=== PATIENT | male | born 1995 | race Hispanic/Latino ===

== ENCOUNTER 2021-07-09 10:58 | Emergency (ER) | payer SELFPAY ==
--- NOTE | 2021-07-09 13:43 | ER ---
Nurse's Notes [facility] Name: Law Abreu Age: 26 yrs Sex: Male : 1995 Arrival Date: 07/09/2021 Time: 11:01 Bed 2 Private MD: Diagnosis: Rash and other nonspecific skin eruption Presentation: 07/09 11:26 Chief complaint: Patient states: Noticed facial redness and itchiness on 07/06/21. Also vg1 states MELISSA ear pain and sore throat. Denies shortness of breath or difficulty breathing. Coronavirus screen: Vaccine status: Patient reports being unvaccinated. Client denies travel out of the [place] in the last 14 days. Ebola Screen: Patient negative for fever greater than or equal to 101.5 degrees Fahrenheit, and additional compatible Ebola Virus Disease symptoms. Initial Sepsis Screen: Does the patient meet any 2 criteria? No. Patient's initial sepsis screen is negative. Does the patient have a suspected source of infection? No. Patient's initial sepsis screen is negative. Risk Assessment: Do you want to hurt yourself or someone else? Patient reports no desire to harm self or others. Onset of symptoms was July 06, 2021. 11:26 Method Of Arrival: Ambulatory vg1 11:26 Acuity: STACIA 4 vg1 Triage Assessment: 11:28 General: Appears in no apparent distress. comfortable, Behavior is calm, cooperative. vg1 Pain: Complains of pain in right ear and left ear and throat and face. Historical: - Allergies: 11:28 No Known Allergies; vg1 - Home Meds: 11:28 None [Active]; vg1 - PMHx: 11: None; vg1 - PSHx: 11:28 None; vg1 - Immunization history:: Client reports having NOT received the Covid vaccine. - Social history:: Smoking status: Patient denies any tobacco usage or history of. Patient/guardian denies using alcohol, street drugs, The patient lives with family. - Family history:: not pertinent. Assessment: 13:49 Reassessment: Patient is alert, oriented x 3, equal unlabored respirations, skin aa5 warm/dry/pink. Vital Signs: 11:26 BP 122 / 85; Pulse 79; Resp 16; Temp 98.1; Pulse Ox 100% ; Weight 62.6 kg; Height 5 ft. vg1 5 in. (165.10 cm); Pain 5/10; 11:26 Body Mass Index 22.96 (62.60 kg, 165.10 cm) vg1 ED Course: 11:01 Patient arrived in ED. ds1 11:28 Triage completed. vg1 11:28 Arm band placed on. vg1 11:49 Strep swab sent to lab. vg1 13:17 Magdaleno Quispe MD is Attending Physician. ma2 13:49 No provider procedures requiring assistance completed. Patient did not have IV access aa5 during this emergency room visit. Administered Medications: No medications were administered Outcome: 13:43 Discharge ordered by . ma2 13:49 Discharged to home ambulatory. aa5 13:49 Condition: stable 13:49 Discharge instructions given to patient, Instructed on discharge instructions, follow up and referral plans. medication usage, Demonstrated understanding of instructions, follow-up care, medications, Prescriptions given X 2. 13:50 Patient left the ED. aa5 Signatures: Alexandrea Jacobson ds1 Shirley Ruano, RN RN aa5 Magdaleno Quispe MD MD ma2 Ileana Cavazos, RN RN vg1
--- NOTE | 2021-07-09 13:43 | EDPHYS ---
Physician Documentation [facility] Name: Law Abreu Age: 26 yrs Sex: Male : 1995 Arrival Date: 07/09/2021 Time: 11:01 Bed 2 Private MD: ED Physician Magdaleno Quispe HPI: 07/09 13:41 This 26 yrs old Male presents to ER via Ambulatory with complaints of Facial ma2 itching. 13:41 Onset: The symptoms/episode began/occurred gradually, 1 day(s) ago. Associated signs ma2 and symptoms: Pertinent positives: itching, Pertinent negatives: burning sensation, difficulty breathing, fever, nausea, Pain swelling of lips, swelling of throat, swelling of tongue. Severity of symptoms: At their worst the symptoms were very mild in the emergency department the symptoms are unchanged. The patient has not experienced similar symptoms in the past. Historical: - Allergies: 11:28 No Known Allergies; vg1 - Home Meds: 11:28 None [Active]; vg1 - PMHx: :28 None; vg1 - PSHx: 11:28 None; vg1 - Immunization history:: Client reports having NOT received the Covid vaccine. - Social history:: Smoking status: Patient denies any tobacco usage or history of. Patient/guardian denies using alcohol, street drugs, The patient lives with family. - Family history:: not pertinent. ROS: 13:41 Constitutional: Negative for fever, chills, and weight loss. ma2 13:41 All other systems are negative. Exam: 13:41 Constitutional: This is a well developed, well nourished patient who is awake, alert, ma2 and in no acute distress. Head/Face: Normocephalic, atraumatic. Eyes: Pupils equal round and reactive to light, extra-ocular motions intact. Lids and lashes normal. Conjunctiva and sclera are non-icteric and not injected. Cornea within normal limits. Periorbital areas with no swelling, redness, or edema. ENT: Nares patent. No nasal discharge, no septal abnormalities noted. Tympanic membranes are normal and external auditory canals are clear. Oropharynx with no redness, swelling, or masses, exudates, or evidence of obstruction, uvula midline. Mucous membranes moist. Neck: Trachea midline, no thyromegaly or masses palpated, and no cervical lymphadenopathy. Supple, full range of motion without nuchal rigidity, or vertebral point tenderness. No Meningismus. Chest/axilla: Normal chest wall appearance and motion. Nontender with no deformity. No lesions are appreciated. Cardiovascular: Regular rate and rhythm with a normal S1 and S2. No gallops, murmurs, or rubs. Normal PMI, no JVD. No pulse deficits. Respiratory: Lungs have equal breath sounds bilaterally, clear to auscultation and percussion. No rales, rhonchi or wheezes noted. No increased work of breathing, no retractions or nasal flaring. Abdomen/GI: Soft, non-tender, with normal bowel sounds. No distension or tympany. No guarding or rebound. No evidence of tenderness throughout. Back: No spinal tenderness. No costovertebral tenderness. Full range of motion. Skin: there is faint hives on neck and facial and neck itching, otherwise Warm, dry with normal turgor. Normal color with no rashes, no lesions, and no evidence of cellulitis. MS/ Extremity: Pulses equal, no cyanosis. Neurovascular intact. Full, normal range of motion. Neuro: Awake and alert, GCS 15, oriented to person, place, time, and situation. Cranial nerves II-XII grossly intact. Motor strength 5/5 in all extremities. Sensory grossly intact. Cerebellar exam normal. Normal gait. Vital Signs: 11:26 BP 122 / 85; Pulse 79; Resp 16; Temp 98.1; Pulse Ox 100% ; Weight 62.6 kg; Height 5 ft. vg1 5 in. (165.10 cm); Pain 5/10; 11:26 Body Mass Index 22.96 (62.60 kg, 165.10 cm) vg1 MDM: 13:17 Patient medically screened. ma2 13:41 Differential diagnosis: impetigo, varicella, allergic reaction, parasite infection. ma2 Data reviewed: vital signs, nurses notes. Counseling: I had a detailed discussion with the patient and/or guardian regarding: the historical points, exam findings, and any diagnostic results supporting the discharge/admit diagnosis, the presence of at least one elevated blood pressure reading (>120/80) during this emergency department visit, the need for outpatient follow up. Response to treatment: the patient's symptoms have markedly improved after treatment. 07/09 11:47 Order name: Strep; Complete Time: 13:43 vg1 07/09 12:30 Order name: Throat Culture EDMS Administered Medications: No medications were administered Disposition Summary: 07/09/21 13:43 Discharge Ordered Location: Home ma2 Condition: Stable ma2 Diagnosis - Rash and other nonspecific skin eruption ma2 Followup: ma2 - With: Private Physician - When: Tomorrow - Reason: Continuance of care Discharge Instructions: - Discharge Summary Sheet ma2 - Rash, Adult, [id number] ma2 Forms: - Medication Reconciliation Form ma2 - Thank You Letter ma2 - Antibiotic Education ma2 - Prescription Opioid Use ma2 Prescriptions: - Benadryl 25 mg Oral Capsule - take 1 capsule by ORAL route every 6 hours As needed; 30 tablet; Refills: 0, ma2 Product Selection Permitted - Medrol (Berto) 4 mg Oral Tablets, Dose Pack - take 1 tablet by ORAL route as directed - follow package instructions; 1 ma2 packet; Refills: 0, Product Selection Permitted Signatures: Dispatcher [employer] EDMS Magdaleno Quispe MD MD ma2 Ileana Cavazos RN RN vg1
[2021-07-09 15:08] VITALS: BP 122/85; TEMP 98.1; O2SAT 100
== END 2021-07-09 13:50 | disposition home or self-care (01) ==
LOC: ER 10:58
DX: R21 Rash and other nonspecific skin eruption (principal)
CPT/HCPCS: 87070; 87081; 99283

== ENCOUNTER 2022-02-23 12:36 | Emergency (ER) | payer SELFPAY ==
--- OUTSIDE RECORDS SUMMARY | 2022-02-23 12:39 | XMS REPORT | Continuity of Care Document ---
:1995 Author Organization [facility] t Address [address] [place] [address] Care Team Providers Name Role Phone Unavailable Unavailable Unavailable Problems This patient has no known problems. Allergies, Adverse Reactions, Alerts This patient has no known allergies or adverse reactions. Medications This patient has no known medications. Procedures This patient has no known procedures. Results Test Description Test Time Test Comments Results Result Comments Source SARS-CoV-2 (COVID-19), RT-PCR/TMA 2021-09-24 07:04:25 Test Item Value Reference Range Interpretation Comme nts SARS-CoV-2 INTERPRETATION NEGATIVE SEE NOTE S ARS-CoV-2 RNA NOT (test code = 44352) DETECTED Negative results do not preclude SARS-C oV-2 infection and should notb e used as the sole basis for patient management deci sions. Negativeresults must be combined with clinical o bservations, patient history ,and epidemiological information. Optimum specime n types and timingfor peak viral levels during infectio ns caused by SARS-CoV-2 have notbeen determined. Col lection of multiple specim ens or types ofspecimens may be necessary to detect virus. I mproper specimencollect ion and handling, sequence variab ility under primers/probes, or organism present below t he limit of detection may l ead to falsenegative r esults. Positive and negative pr edictive values oftesting are h ighly dependent on prevalence. False negative testresults are more likely when prevalence is h igh. SOURCE (test code = 07606) NASOPHARYNGEAL Note: Methodology is Courtney Divine Real-Time RT-PCR. The expected r esult or reference range is NEGATIVE (Not Detected). For more information regarding COVID -19 testing to include clinica linformation, methodology det ail, intended use, FDA author ization andrecommended fact sheets for patients or hea lthcare providers, see [facility] Announcement: S ARS-CoV-2 (COVID-19) by Bonita TORRES at URL below (note,fact shee ts are provided by method given in report:https:// www.[employer]/c bisi/pan t-communications/ Alternatively, see downloadable PDF fact sheet at:https://www. [employer]/COVID -19-RT-PCR UNLESS OTHERWISE INDIC ATED, ALL TESTING PERFORMED [facility], [facility]. [address] [place] [address] LABORATORY DIRE CTOR: AMANDA LOU M.D. CLIA NUMBER [id number] [facility] [place]. [id number]
[2022-02-23 13:51] LABS: Urine Blood Negative (Negative); Urine Glucose Negative (Negative); Urine Protein Negative (Negative)
[2022-02-23 13:51] LABS: Hematocrit 40.4 % (39.6-49.0); Lymphocytes % 15.2 % (15.3-44.8); MPV 7.1 fL (7.6-11.3); RBC Red Blood Cell Count 4.49 M/uL (4.33-5.43)
[2022-02-23 14:07] LABS: Urine Bacteria NONE SEEN /HPF (NONE SEEN); Urine Mucus 1+ /HPF (NONE SEEN); Urine RBC <5 /HPF (NONE SEEN)
[2022-02-23 14:11] LABS: Albumin 4.2 g/dL (3.4-5.0); Bilirubin Total 0.9 mg/dL (0.2-1.0); Potassium 3.9 mmol/L (3.5-5.1); Protein, Total 7.6 g/dL (6.4-8.2)
[2022-02-23] MEDS ORDERED: NA CHLORIDE 0.9% 1,000 ML ONE (15:44)
[2022-02-23] MEDS ORDERED: KETOROLAC 30 MG/ML INJ ONE (15:44)
--- NOTE | 2022-02-23 16:30 | RAD REPORT ---
EXAM DESCRIPTION: CT - Abdomen Pelvis W Contrast - 02/23/2022 4:16 pm CLINICAL HISTORY: Abdominal pain, acute, nonlocalized COMPARISON: CT ABD PELVIS W CONTRAST dated 06/09/2014 TECHNIQUE: Biphasic, helical CT imaging of the abdomen and pelvis was performed following 100 ml non -ionic IV contrast. Oral contrast was given. All CT scans are performed using dose optimization technique as appropriate and may include automated exposure control or mA/KV adjustment according to patient size. FINDINGS: No suspicious findings in the lung bases. The liver, spleen, and pancreas show no suspicious findings. Gallbladder and biliary tree are also wi thout suspicious finding. Mild right-sided hydronephrosis is present. No pyelonephritis or acute renal parenchymal process seen . Patient has a 2-3 mm right UVJ calcification as a source for the hydronephrosis. 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 In the upper pole moiety there is a nonobstructing 4 millimeter calcification. No nonobstructing calculi on the right. No left-side d calcification or hydronephrosis. No solid mass lesions seen. Urinary bladder is mostly contracted. No adrenal abnormalities. No dilated bowel loops or bowel wall thickening. Appendix is normal. No free air, free fluid or infla mmatory stranding. No hernia, mass or bulky lymphadenopathy. No suspicious bony findings. IMPRESSION: Mild right-sided hydronephrosis secondary to a 2-3 mm right UVJ calcification. 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 There is a 4 mm nonobs tructing calcification in the upper pole moiety. No pyelonephritis or acute renal parenchymal process seen. The UVJ stone does not cause significant o r measurable asymmetry in the parenchymal enhancement pattern.
[2022-02-23] MEDS ORDERED: MAGNESIUM SULFATE 1 gm IVPB 1 GM/100 ML BAG IV ONE (16:53)
[2022-02-23] MEDS ORDERED: MORPHINE 4 MG/ML SYR ONE (16:53)
[2022-02-23] MEDS ORDERED: TAMSULOSIN 0.4 MG SR CAP ONE (16:53)
--- NOTE | 2022-02-23 17:21 | EDPHYS ---
Physician Documentation [facility] Name: Law Abreu Age: 26 yrs Sex: Male : 1995 Arrival Date: 02/23/2022 Time: 12:39 Bed 23 Private MD: ED Physician Erasto Mackay HPI: 02/23 13:20 This 26 yrs old Male presents to ER via Unassigned with complaints of cp Abdominal Pain, Urinary Frequency. 13:20 The patient presents with abdominal pain in the periumbilical area. Onset: The cp symptoms/episode began/occurred 2 day(s) ago. 13:20 The symptoms radiate to right back, groin. cp 13:20 Associated signs and symptoms: Pertinent negatives: anorexia, chest pain, constipation, cp diarrhea, dysuria, fever, palpitations, shortness of breath, vomiting. The symptoms are described as constant. Severity of pain: in the emergency department the pain is unchanged despite home interventions. Historical: - Allergies: 13:34 No Known Allergies; aa5 - PMHx: 13:34 None; aa5 - PSHx: 13:34 None; aa5 - Immunization history:: Adult Immunizations unknown. - Social history:: Smoking status: Patient denies any tobacco usage or history of. ROS: 13:25 Constitutional: Negative for body aches, chills, fever, poor PO intake. cp 13:25 Cardiovascular: Negative for chest pain, palpitations. cp 13:25 Eyes: Negative for injury, pain, redness, and discharge. cp 13:25 ENT: Negative for drainage from ear(s), ear pain, sore throat, difficulty swallowing, difficulty handling secretions. 13:25 Neck: Negative for pain with movement, pain at rest, stiffness. 13:25 Respiratory: Negative for cough, shortness of breath, wheezing. 13:25 Abdomen/GI: Positive for abdominal pain, Negative for vomiting, diarrhea, constipation, black/tarry stool, rectal bleeding. 13:25 : Positive for penile pain, Negative for hematuria, penile discharge, testicular pain 13:25 Skin: Negative for cellulitis, rash. 13:25 Neuro: Negative for altered mental status, dizziness, headache, numbness, syncope, weakness. 13:25 All other systems are negative. Exam: 13:30 Constitutional: The patient appears in no acute distress, alert, awake, non-toxic, well cp developed, well nourished. 13:30 Head/Face: Normocephalic, atraumatic. cp 13:30 Eyes: Periorbital structures: appear normal, Conjunctiva: normal, no exudate, no injection, Sclera: no appreciated abnormality, Lids and lashes: appear normal, bilaterally. 13:30 ENT: External ear(s): are unremarkable, Nose: is normal, Mouth: Lips: moist, Oral mucosa: pink and intact, moist, Posterior pharynx: Airway: no evidence of obstruction, patent. 13:30 Chest/axilla: Inspection: normal, Palpation: is normal, no crepitus, no tenderness. 13:30 Cardiovascular: Rate: normal, Rhythm: regular. 13:30 Respiratory: the patient does not display signs of respiratory distress, Respirations: normal, no use of accessory muscles, no retractions, labored breathing, is not present, Breath sounds: are clear throughout, no decreased breath sounds, no stridor, no wheezing. 13:30 Abdomen/GI: Inspection: abdomen appears normal, Bowel sounds: active, all quadrants, Palpation: soft, in all quadrants, mild abdominal tenderness, in the anterior aspect of right lateral abdomen, posterior aspect of right lateral abdomen, right upper quadrant and right lower quadrant, rebound tenderness, is not appreciated, involuntary guarding, is not appreciated. 13:30 Back: CVA tenderness, is absent. 13:30 Skin: cellulitis, is not appreciated, no rash present. 13:30 Neuro: Orientation: to person, place \T\ time. Mentation: is normal, Motor: moves all fours, strength is normal, Sensation: is normal, Gait: is steady, at a normal pace, without difficulty. Vital Signs: 13:35 BP 118 / 79; Pulse 72; Resp 18 S; Temp 98.2(TE); Pulse Ox 100% on R/A; Weight 66.68 kg aa5 (R); Height 5 ft. 5 in. (165.10 cm) (R); 17:00 BP 115 / 78; Pulse 71; Resp 16; Pulse Ox 99% on R/A; jb4 18:08 BP 109 / 71; Pulse 70; Resp 16; Pulse Ox 100% on R/A; jb4 13:35 Body Mass Index 24.46 (66.68 kg, 165.10 cm) aa5 MDM: 15:19 Patient medically screened. cp 16:00 Differential diagnosis: appendicitis, bowel obstruction, cholecystitis, Cholelithiasis, cp non-specific abd pain, Pyelonephritis, Testicular Torsion, Ureterolithiasis, urinary tract infection. 17:20 Data reviewed: vital signs, nurses notes, lab test result(s), radiologic studies, CT cp scan, and as a result, I will discharge patient. 17:20 Counseling: I had a detailed discussion with the patient and/or guardian regarding: the cp historical points, exam findings, and any diagnostic results supporting the discharge/admit diagnosis, lab results, radiology results, to return to the emergency department if symptoms worsen or persist or if there are any questions or concerns that arise at home. 17:20 Response to treatment: the patient's symptoms have markedly improved after treatment, cp and as a result, I will discharge patient. 02/23 13:22 Order name: CBC with Diff; Complete Time: 15:19 cp 02/23 13:22 Order name: CMP; Complete Time: 15:19 cp 02/23 13:22 Order name: Lipase; Complete Time: 15:19 cp 02/23 13:22 Order name: Urine Microscopic Only; Complete Time: 15:19 cp 02/23 13:22 Order name: CT Abd/Pelvis - PO and IV Contrast: umbilical pain; Complete Time: 16:37 cp 02/23 13:52 Order name: Urine Dipstick-Ancillary; Complete Time: 15:19 EDMS 02/23 13:22 Order name: IV Saline Lock; Complete Time: 13:50 cp 02/23 13:22 Order name: Labs collected and sent; Complete Time: 13:51 cp 02/23 13:22 Order name: Urine Dipstick-Ancillary (obtain specimen); Complete Time: 13:51 cp Administered Medications: 15:42 Drug: Ketorolac 15 mg Route: IVP; Site: right antecubital; jb4 18:09 Follow up: Response: No adverse reaction jb4 15:42 Drug: NS 0.9% 1000 ml Route: IV; Rate: 1 bolus; Site: right antecubital; jb4 16:30 Follow up: Response: No adverse reaction; IV Status: Completed infusion; IV Intake: jb4 1000ml 16:54 Drug: morphine 4 mg Route: IVP; Infused Over: 4 mins; Site: right antecubital; jb4 18:10 Follow up: Response: No adverse reaction; Marked relief of symptoms jb4 16:58 Drug: Magnesium Sulfate 1 grams Route: IVPB; Infused Over: 1 hrs; Site: right jb4 antecubital; 17:58 Follow up: Response: No adverse reaction; IV Status: Completed infusion jb4 16:58 Drug: Flomax (tamsulosin) 0.4 mg Route: PO; jb4 18:09 Follow up: Response: No adverse reaction; Marked relief of symptoms jb4 Disposition: 02/24 07:00 Co-signature as Attending Physician, Erasto Mackay MD. rn Disposition Summary: 02/23/22 17:20 Discharge Ordered Location: Home cp Problem: new cp Symptoms: have improved cp Condition: Stable cp Diagnosis - Calculus of kidney with calculus of ureter - left cp Followup: cp - With: Rome Sun MD - When: 2 - 3 days - Reason: pain continues Discharge Instructions: - Discharge Summary Sheet cp - Kidney Stones cp - Renal Colic cp Forms: - Medication Reconciliation Form cp - Thank You Letter cp - Antibiotic Education cp - Prescription Opioid Use cp - Work release form jb4 Prescriptions: - Flomax 0.4 mg Oral capsule - take 1 capsule by ORAL route once daily 1/2 hour following the same meal each cp day; 7 capsule; Refills: 0, Product Selection Permitted - Ibuprofen 800 mg Oral Tablet - take 1 tablet by ORAL route every 8 hours As needed take with food; 30 tablet; cp Refills: 0, Product Selection Permitted - Zofran 4 mg Oral Tablet - take 1 tablet by ORAL route every 12 hours As needed; 20 tablet; Refills: 0, cp Product Selection Permitted - Tramadol 50 mg Oral Tablet - take 1 tablet by ORAL route every 8 hours as needed; 12 tablet; Refills: 0, cp Product Selection Permitted Signatures: Dispatcher [employer] EDErasto Aranda MD MD rn Calderon, Audri RN RN aa5 Louis Rocha PA PA Jossue Garcia RN RN jb4
--- NOTE | 2022-02-23 17:21 | ER ---
Nurse's Notes [facility] Name: Law Abreu Age: 26 yrs Sex: Male : 1995 Arrival Date: 02/23/2022 Time: 12:39 Bed 23 Private MD: Diagnosis: Calculus of kidney with calculus of ureter-left Presentation: 02/23 13:35 Chief complaint: Patient states: abdominal pain radiating all the way down to penis, pt aa5 reports pain began Wednesday. Reports diarrhea and nausea, denies vomiting. Coronavirus screen: diarrhea, nausea. Ebola Screen: No symptoms or risks identified at this time. Initial Sepsis Screen: Does the patient meet any 2 criteria? No. Patient's initial sepsis screen is negative. Does the patient have a suspected source of infection? No. Patient's initial sepsis screen is negative. Risk Assessment: Do you want to hurt yourself or someone else? Patient reports no desire to harm self or others. Onset of symptoms was January 2022. 13:35 Acuity: STACIA 3 aa5 13:35 Method Of Arrival: Ambulatory aa5 Historical: - Allergies: 13:34 No Known Allergies; aa5 - PMHx: 13:34 None; aa5 - PSHx: 13:34 None; aa5 - Immunization history:: Adult Immunizations unknown. - Social history:: Smoking status: Patient denies any tobacco usage or history of. Screenin:15 Abuse screen: Denies threats or abuse. Nutritional screening: No deficits noted. jb4 Tuberculosis screening: No symptoms or risk factors identified. Fall Risk None identified. Assessment: 15:10 General: Appears in no apparent distress. uncomfortable, Behavior is calm, cooperative, jb4 appropriate for age. Pain: Complains of pain in umbilical area Pain radiates to groin Pain currently is 6 out of 10 on a pain scale. Neuro: Level of Consciousness is awake, alert, obeys commands, Oriented to person, place, time, situation. Cardiovascular: Patient's skin is warm and dry. Respiratory: Airway is patent Respiratory effort is even, unlabored, Respiratory pattern is regular, symmetrical. GI: Abdomen is flat, non-distended, Reports nausea. : Reports pain with urination. Derm: Skin is intact, Skin is pink, warm \T\ dry. Musculoskeletal: Circulation, motion, and sensation intact. Range of motion: intact in all extremities. 16:30 Reassessment: Patient appears in no apparent distress at this time. Patient and/or jb4 family updated on plan of care and expected duration. Pain level reassessed. Patient is alert, oriented x 3, equal unlabored respirations, skin warm/dry/pink. 17:10 Reassessment: Patient appears in no apparent distress at this time. Patient and/or jb4 family updated on plan of care and expected duration. Pain level reassessed. Patient is alert, oriented x 3, equal unlabored respirations, skin warm/dry/pink. 17:28 Reassessment: D/c pending completion of IV fluids. jb4 18:08 Reassessment: Patient appears in no apparent distress at this time. Patient and/or jb4 family updated on plan of care and expected duration. Pain level reassessed. Patient is alert, oriented x 3, equal unlabored respirations, skin warm/dry/pink. Vital Signs: 13:35 BP 118 / 79; Pulse 72; Resp 18 S; Temp 98.2(TE); Pulse Ox 100% on R/A; Weight 66.68 kg aa5 (R); Height 5 ft. 5 in. (165.10 cm) (R); 17:00 BP 115 / 78; Pulse 71; Resp 16; Pulse Ox 99% on R/A; jb4 18:08 BP 109 / 71; Pulse 70; Resp 16; Pulse Ox 100% on R/A; jb4 13:35 Body Mass Index 24.46 (66.68 kg, 165.10 cm) aa5 ED Course: 12:39 Patient arrived in ED. rg4 12:39 Louis Rocha PA is PHCP. cp 12:39 Erasto Mackay MD is Attending Physician. cp 13:34 Arm band placed on. aa5 13:36 Triage completed. aa5 13:40 Initial lab(s) drawn, by me, sent to lab. Inserted saline lock: 20 gauge in right aa5 antecubital area, using aseptic technique. Blood collected. 15:15 Patient has correct armband on for positive identification. Bed in low position. Call jb4 light in reach. Side rails up X 1. Client placed on continuous cardiac and pulse oximetry monitoring. NIBP monitoring applied. 15:23 Jossue Burgess, RN is Primary Nurse. jb4 16:17 CT Abd/Pelvis - PO and IV Contrast: umbilical pain In Process Unspecified. EDMS 17:16 Rome Sun MD is Referral Physician. cp 18:08 No provider procedures requiring assistance completed. IV discontinued, intact, jb4 bleeding controlled, No redness/swelling at site. Pressure dressing applied. Administered Medications: 15:42 Drug: Ketorolac 15 mg Route: IVP; Site: right antecubital; jb4 18:09 Follow up: Response: No adverse reaction jb4 15:42 Drug: NS 0.9% 1000 ml Route: IV; Rate: 1 bolus; Site: right antecubital; jb4 16:30 Follow up: Response: No adverse reaction; IV Status: Completed infusion; IV Intake: jb4 1000ml 16:54 Drug: morphine 4 mg Route: IVP; Infused Over: 4 mins; Site: right antecubital; jb4 18:10 Follow up: Response: No adverse reaction; Marked relief of symptoms jb4 16:58 Drug: Magnesium Sulfate 1 grams Route: IVPB; Infused Over: 1 hrs; Site: right jb4 antecubital; 17:58 Follow up: Response: No adverse reaction; IV Status: Completed infusion jb4 16:58 Drug: Flomax (tamsulosin) 0.4 mg Route: PO; jb4 18:09 Follow up: Response: No adverse reaction; Marked relief of symptoms jb4 Medication: 18:08 VIS not applicable for this client. jb4 Intake: 16:30 IV: 1000ml; Total: 1000ml. jb4 Outcome: 17:20 Discharge ordered by MD. cp 18:08 Discharged to home ambulatory, with family. jb4 18:08 Condition: stable 18:08 Discharge instructions given to patient, Instructed on discharge instructions, follow up and referral plans. no drinking with medication, no driving heavy equipment, medication usage, Demonstrated understanding of instructions, follow-up care, medications, Prescriptions given X 4. 18:10 Patient left the ED. jb4 Signatures: Dispatcher [employer] EDMS Shirley Ruano, RN RN aa5 Louis Rocha PA PA Celeste Barrientos rg4 Jossue Burgess, RN RN jb4
[2022-02-23 18:52] VITALS: TEMP 98.2
[2022-02-23 19:30] VITALS: BP 109/71; O2SAT 100
== END 2022-02-23 18:10 | disposition home or self-care (01) ==
LOC: ER 12:36
DX: N20.2 Calculus of kidney with calculus of ureter (principal)
CPT/HCPCS: 36415; 74177; 80053; 81003; 81015; 83690; 85025; 96361; 96365; 96375; 99284; J3475; J7030; Q9967

== ENCOUNTER 2022-04-19 20:43 | Emergency (ER) | payer OTHER, SELFPAY ==
--- OUTSIDE RECORDS SUMMARY | 2022-04-19 20:45 | XMS REPORT | Continuity of Care Document ---
:1995 Author Organization [facility] t Address [address] [place] [address] Care Team Providers Name Role Phone Unavailable [...] S ARS-CoV-2 RNA NOT (test code = 17441) DETECTED Negative results do not preclude SARS-C oV-2 infection and should notb e used as the sole basis for patient management deci sions. Negativeresults must be combined with c linical observations, p atient history,and epi demiological information. Op timum specimen types and timin gfor peak viral levels during i nfections caused by SARS-CoV-2 h ave notbeen determined. Col lection of multiple specim ens or types ofspecimens may be necessary to detect virus. I mproper specimencollect ion and handling, seque nce variability under primers/p robes,or organism presen t below the limit of detect ion may lead to falsenegative r esults. Positive and negative pr edictive values oftesting are h ighly dependent on prevalence. False negative testresults are more likely when prevalence is high. SOURCE (test code = 24017) NASOPHARYNGEAL Note: Methodology is Courtney Divine Real-Time RT-PCR. The expected result or reference range is NEGATI VE (Not Detected). For more information regarding COVID -19 testing to include clinica linformation, methodology det ail, intended use, FDA author tiffany wrended fact sheets for patients or hea lthcare providers, see [facility] Announcement: S ARS-CoV-2 (COVID-19) by Bonita TORRES at URL below (note,fact shee ts are provided by method given in report:https:// www.[employer]/ clinicians/malini nt-communication s/ Alternativel y, see downloadable PD F fact sheet at:https://www. [employer]/COVI D-19-RT-PCR UNL ESS OTHERWISE INDICATED, ALL TESTING PERFORMED [facility], [facility]. [address] [place] [address] 4 SENIOR IT ARCHITECT: Silvina OLIVEIRA [id number] CAP ACCREDITATION N O. [id number]
--- NOTE | 2022-04-19 21:05 | ER ---
Nurse's Notes [facility] Name: Law Abreu Age: 27 yrs Sex: Male : 1995 Arrival Date: 04/19/2022 Time: 20:44 Bed Waiting Private MD: Diagnosis: Periapical abscess without sinus Presentation: 04/19 21:00 Chief complaint: Patient states: I started having a really bad tooth ache last night bm7 and today out of nowhere it got worse. Coronavirus screen: At this time, the client does not indicate any symptoms associated with coronavirus-19. Ebola Screen: No symptoms or risks identified at this time. Initial Sepsis Screen: Does the patient meet any 2 criteria? No. Patient's initial sepsis screen is negative. Does the patient have a suspected source of infection? No. Patient's initial sepsis screen is negative. Risk Assessment: Do you want to hurt yourself or someone else? Patient reports no desire to harm self or others. Onset of symptoms was April 18, 2022. 21:00 Method Of Arrival: Ambulatory bm7 21:00 Acuity: STACIA 4 bm7 Triage Assessment: 21:02 General: Appears in no apparent distress. uncomfortable, Behavior is calm, cooperative, bm7 appropriate for age. Pain: Complains of pain in lower left second molar and lower left first molar Pain does not radiate. Pain currently is 10 out of 10 on a pain scale. Quality of pain is described as aching. EENT: Reports pain in mouth. Neuro: No deficits noted. Cardiovascular: No deficits noted. Respiratory: No deficits noted. GI: No deficits noted. No signs and/or symptoms were reported involving the gastrointestinal system. : No deficits noted. No signs and/or symptoms were reported regarding the genitourinary system. Derm: No deficits noted. No signs and/or symptoms reported regarding the dermatologic system. Musculoskeletal: No deficits noted. No signs and/or symptoms reported regarding the musculoskeletal system. Historical: - Allergies: 21: No Known Allergies; bm7 - Home Meds: 21:02 None [Active]; bm7 - PMHx: 21:02 None; bm7 - PSHx: 21:02 None; bm7 - Immunization history:: Adult Immunizations up to date, Client reports having NOT received the Covid vaccine. - Social history:: Smoking status: Patient denies any tobacco usage or history of. Screenin:13 Abuse screen: Denies threats or abuse. Nutritional screening: No deficits noted. bm7 Tuberculosis screening: No symptoms or risk factors identified. Fall Risk None identified. Assessment: 21:13 Reassessment: No changes from previously documented assessment. bm7 Vital Signs: 21:00 BP 136 / 86; Pulse 70; Resp 16; Temp 98.0(TE); Pulse Ox 100% on R/A; Weight 67.13 kg bm7 (R); Height 5 ft. 5 in. (165.10 cm); Pain 10/10; 21:00 Body Mass Index 24.63 (67.13 kg, 165.10 cm) bm7 ED Course: 20:44 Patient arrived in ED. bp1 20:47 Emelina Camarena FNP-C is [facility]. kb 20:47 Louis Pantoja MD is Attending Physician. kb 21:02 Triage completed. bm7 21:02 Arm band placed on right wrist. bm7 21:13 Patient has correct armband on for positive identification. bm7 21:13 No provider procedures requiring assistance completed. Patient did not have IV access bm7 during this emergency room visit. Administered Medications: 21:09 Drug: Augmentin (Amoxicillin-Clavulanate) 875 mg Route: PO; bm7 21:14 Follow up: Response: No adverse reaction bm7 21:09 Drug: [place] (HYDROcodone-acetaminophen) (7.5 mg-325 mg) 1 tabs Route: PO; bm7 21:13 Follow up: Response: No adverse reaction bm7 Medication: 21:13 VIS not applicable for this client. bm7 Outcome: 21:04 Discharge ordered by . kb 21:13 Discharged to home ambulatory. bm7 21:13 Condition: good 21:13 Discharge instructions given to patient, Instructed on discharge instructions, follow up and referral plans. medication usage, Demonstrated understanding of instructions, follow-up care, medications, Prescriptions given X 2. 21:14 Patient left the ED. bm7 Signatures: Emelina Camarena FNP-C FNP-Alma Castro Brittany, RN RN bm7
--- NOTE | 2022-04-19 21:05 | EDPHYS ---
Physician Documentation [facility] Name: Law Abreu Age: 27 yrs Sex: Male : 1995 Arrival Date: 04/19/2022 Time: 20:44 Bed Waiting Private MD: EULA Physician Louis Pantoja HPI: 04/19 23:39 This 27 yrs old Male presents to ER via Ambulatory with complaints of kb Toothache. 23:39 The patient presents with pain, redness, swelling. The problem is located in the lower kb left second bicuspid (#20) and lower left first molar (#19). Onset: The symptoms/episode began/occurred yesterday. Duration: The symptoms are continuous. Modifying factors: The symptoms are alleviated by nothing, the symptoms are aggravated by nothing. Associated signs and symptoms: Pertinent positives: pain, redness in area, swelling. Severity of symptoms: At their worst the symptoms were moderate, in the emergency department the symptoms are unchanged. The patient has not experienced similar symptoms in the past. The patient has not recently seen a physician. Patient reports tooth ache since last night. Pain worse today so he came in. Plans to call dentist in the morning.. Historical: - Allergies: 21:02 No Known Allergies; bm7 - Home Meds: 21:02 None [Active]; bm7 - PMHx: 21:02 None; bm7 - PSHx: 21:02 None; bm7 - Immunization history:: Adult Immunizations up to date, Client reports having NOT received the Covid vaccine. - Social history:: Smoking status: Patient denies any tobacco usage or history of. ROS: 23:38 Constitutional: Negative for fever, chills, and weight loss. kb 23:38 ENT: Positive for dental pain. 23:38 All other systems are negative. Exam: 23:39 Constitutional: This is a well developed, well nourished patient who is awake, alert, kb and in no acute distress. Head/Face: Normocephalic, atraumatic. Cardiovascular: Regular rate and rhythm with a normal S1 and S2. No gallops, murmurs, or rubs. No pulse deficits. Respiratory: Respirations even and unlabored. No increased work of breathing. Talking in full sentences Skin: Warm, dry with normal turgor. Normal color. MS/ Extremity: Pulses equal, no cyanosis. Neurovascular intact. Full, normal range of motion. Neuro: Awake and alert, GCS 15, oriented to person, place, time, and situation. Moves all extremities. Normal gait. Psych: Awake, alert, with orientation to person, place and time. Behavior, mood, and affect are within normal limits. 23:39 ENT: Dental exam: gum swelling, that is mild, specifically in the lower left first molar (#19) and lower left second bicuspid (#20), pain, that is moderate, specifically in the lower left first molar (#19) and lower left second bicuspid (#20). Vital Signs: 21:00 BP 136 / 86; Pulse 70; Resp 16; Temp 98.0(TE); Pulse Ox 100% on R/A; Weight 67.13 kg bm7 (R); Height 5 ft. 5 in. (165.10 cm); Pain 10/10; 21:00 Body Mass Index 24.63 (67.13 kg, 165.10 cm) bm7 MDM: 21:04 Patient medically screened. kb 23:38 Data reviewed: vital signs, nurses notes. Data interpreted: Pulse oximetry: on room air kb is 100 %. Interpretation: normal. Counseling: I had a detailed discussion with the patient and/or guardian regarding: the historical points, exam findings, and any diagnostic results supporting the discharge/admit diagnosis, the need for outpatient follow up, a dentist, to return to the emergency department if symptoms worsen or persist or if there are any questions or concerns that arise at home. Administered Medications: 21:09 Drug: Augmentin (Amoxicillin-Clavulanate) 875 mg Route: PO; bm7 21:14 Follow up: Response: No adverse reaction bm7 21:09 Drug: [place] (HYDROcodone-acetaminophen) (7.5 mg-325 mg) 1 tabs Route: PO; bm7 21:13 Follow up: Response: No adverse reaction bm7 Disposition Summary: 04/19/22 21:04 Discharge Ordered Location: Home kb Condition: Stable kb Diagnosis - Periapical abscess without sinus kb Followup: kb - With: Emergency Department - When: As needed - Reason: Worsening of condition Followup: kb - With: Private Physician - When: 2 - 3 days - Reason: Recheck today's complaints, Continuance of care, Re-evaluation by your physician Discharge Instructions: - Discharge Summary Sheet kb - Dental Pain, [id number] kb - Dental Abscess, [id number] kb Forms: - Medication Reconciliation Form kb - Thank You Letter kb - Antibiotic Education kb - Prescription Opioid Use kb Prescriptions: - Augmentin 875-125 mg Oral Tablet - take 1 tablet by ORAL route every 12 hours for 10 days; 20 tablet; Refills: 0, kb Product Selection Permitted - Diclofenac Sodium 75 mg Oral tablet,delayed release (DR/EC) - take 1 tablet by ORAL route 2 times per day As needed; 30 tablet; Refills: 0, kb Product Selection Permitted Signatures: Emelina Camarena, CASSANDRA LAGOS-Alma Ziegler, RN RN bm7
[2022-04-19] MEDS ORDERED: AMOX/K CLAV 875 MG TAB ONE (21:16)
[2022-04-19] MEDS ORDERED: HYDROCODONE/APAP 7.5/325 MG TAB ONE (21:17)
[2022-04-19 23:36] VITALS: BP 136/86; TEMP 98; O2SAT 100
== END 2022-04-19 21:14 | disposition home or self-care (01) ==
LOC: ER 20:43
DX: K04.7 Periapical abscess without sinus (principal)
CPT/HCPCS: 99283

== ENCOUNTER 2023-01-11 13:45 | Emergency (ER) | payer SELFPAY ==
--- OUTSIDE RECORDS SUMMARY | 2023-01-11 14:03 | XMS REPORT | Continuity of Care Document ---
:1995 Author Organization [facility] t Address [address] [facility] [address] [place] [id number] Care Team Providers Name Role Phone Unavailable [...] S ARS-CoV-2 RNA NOT (test code = 24384) DETECTED Negative results do not preclude SARS-C [...] prevalence is high. SOURCE (test code = 42161) NASOPHARYNGEAL Note: Methodology is Courtney Divine Real-Time RT-PCR. The expected result or reference range is NEGATI VE (Not Detected). For more information regarding COVID -19 testing to include clinica linformation, methodology det ail, intended use, FDA author ization andrecommended fact sheets for patients or hea lthcare providers, see [facility] Announcement: S ARS-CoV-2 (COVID-19) by N BRIAN at URL below (note,fact shee ts are provided by method given in report:https:// www.[employer]/ clinicians/malini nt-communication s/ Alternativel y, see downloadable PD F fact sheet at:https://www. [employer]/COVI D-19-RT-PCR UNL ESS OTHERWISE INDICATED, ALL TESTING PERFORMED [facility], [facility]. [address] [place] [address] 4 MONEY ORDER CLERK: Silvina OLIVEIRA [id number] CAP ACCREDITATION N O. [id number]
--- NOTE | 2023-01-11 14:46 | EDPHYS ---
Physician Documentation [facility] Name: Law Abreu Age: 27 yrs Sex: Male : 1995 Arrival Date: 01/11/2023 Time: 13:45 Bed IW4 Private MD: ED Physician Erasto Mackay MDM: 01/11 14:45 ED course: Patient eloped from the ED prior to evaluation. . jordana Administered Medications: No medications were administered Disposition: 15:36 Co-signature as Attending Physician, Erasto Mackay MD. rn Disposition Summary: 01/11/23 14:46 Eloped Disposition: Before Triage jordana Reason: unknown jordana Diagnosis - Hemoptysis jordana Followup: jordana - With: Private Physician - When: 2 - 3 days - Reason: Recheck today's complaints, Continuance of care, Re-evaluation by your physician Signatures: Jesse Hernandez PA PA jmm Nieto, Roman, MD MD government program manager: (The following items were deleted from the chart) 14:45 14:11 Patient medically screened. jordana silveira
--- NOTE | 2023-01-11 14:46 | ER ---
Nurse's Notes [facility] Name: Law Abreu Age: 27 yrs Sex: Male : 1995 Arrival Date: 01/11/2023 Time: 13:45 Bed 4 [facility] MD: Diagnosis: Hemoptysis Assessment: 01/11 14:10 Reassessment: Not in WR when called for triage. nj1 14:20 Reassessment: Not in WR when called for triage. nj1 14:33 Reassessment: Not in WR when called for triage. [facility] ED Course: 13:45 Patient arrived in ED. rg4 13:54 Jesse Hernandez PA is PHCP. jordana 13:54 Issa Boudreaux DO is Attending Physician. jayro 14:45 Erasto Mackay MD is Attending Physician. jayro Administered Medications: No medications were administered Outcome: 15:00 Patient left the ED. iw Signatures: Jesse Hernandez PA PA jmm Williams, Irene, RN DEO Celeste Cavazos 4 Diane Faye RN RN nj1
== END 2023-01-11 15:00 | disposition left against medical advice (07) ==
LOC: ER 13:45
DX: R04.2 Hemoptysis (principal); Z53.21 Procedure and treatment not carried out due to patient leaving prior to being seen by health care provider

== ENCOUNTER → 2023-08-18 | Emergency (ER) | payer SELFPAY ==
[~2023-08-18] MED LIST: HYDROCODONE/APAP 7.5/325 MG TAB ONE; KETOROLAC 30 MG/ML INJ ONE; dexAMETHasone 10 MG/ML VIAL ONE
--- OUTSIDE RECORDS SUMMARY | 2023-08-18 21:08 | XMS REPORT | Continuity of Care Document ---
Author Name Unknown Address [address] [place] [address] [employer] Address [address] [place] [address] Care Team Providers Care Green Hide Inspector Name Role Phone Unavailable Unavailable Unavailable Results Test Description Test Time Test Comments Results Result Co mments Source
--- NOTE | 2023-08-19 00:37 | EDPHYS ---
Physician Documentation [facility] Name: Law Abreu Age: 28 yrs Sex: Male : 1995 Arrival Date: 08/18/2023 Time: 21:05 Bed DX3 Private MD: ED Physician Getachew Vargas HPI: 08/18 22:18 This 28 yrs old Male presents to ER via Ambulatory with complaints of Neck and kb Upper Back Pain. 22:18 Patient is a 28-year-old male who presents for pain to neck and upper back, down to kb shoulder blades that started 6 days ago. States he woke up with the pain. Denies any injury or trauma. Says he has been working on his car for the last week and a half. Denies fever. States pain is worse whenever he lays down or tries to hunch over. Historical: - Allergies: 21:30 No Known Allergies; bp - Home Meds: 21:30 None [Active]; bp - PMHx: 21:30 None; bp - Immunization history:: Adult Immunizations up to date. - Social history:: Smoking status: Patient denies any tobacco usage or history of. ROS: 22:16 Constitutional: Negative for fever, chills, and weight loss, kb 22:16 Back: Positive for of the posterior cervical area, left scapular area, right scapular area and thoracic area, 22:16 All other systems are negative, Exam: 22:16 Constitutional: This is a well developed, well nourished patient who is awake, alert, kb and in no acute distress. Head/Face: Normocephalic, atraumatic. ENT: Moist Mucous membranes Cardiovascular: Regular rate Respiratory: Respirations even and unlabored. No increased work of breathing. Talking in full sentences Skin: Warm, dry with normal turgor. Normal color. MS/ Extremity: Pulses equal, no cyanosis. Neurovascular intact. Full, normal range of motion. Neuro: Awake and alert, GCS 15, oriented to person, place, time, and situation. Moves all extremities. Normal gait. 22:16 Back: pain, that is moderate, of the posterior cervical area, left scapular area, right scapular area and thoracic area, ROM is painful, Vital Signs: 21:29 BP 115 / 81; Pulse 72; Resp 16; Temp 98.3; Pulse Ox 100% ; Weight 81.65 kg; Height 5 bp ft. 5 in. ; 22:46 BP 114 / 82; Pulse 73; Resp 16 S; Pulse Ox 99% on R/A; jw7 21:29 Body Mass Index 29.95 (81.65 kg, 165.1 cm) bp MDM: 21:16 Patient medically screened. kb 22:17 Differential diagnosis: Muscle strain, fracture, arthritis. Data reviewed: vital signs, kb nurses notes. Test considered but Not performed: X-ray: X-ray cervical spine and thoracic spine considered but most tenderness is to lateral aspects of spine and patient had no trauma or injury.. 08/19 00:36 Counseling: I had a detailed discussion with the patient and/or guardian regarding the kb historical points, exam findings, and any diagnostic results supporting the discharge/admit diagnosis, radiology results, the need for outpatient follow up, a family practitioner, to return to the emergency department if symptoms worsen or persist or if there are any questions or concerns that arise at home. 08/18 21:35 Order name: Chest Pa And Lat (2 Views) XRAY kb Administered Medications: 08/18 21:35 CANCELLED (Duplicate Order): [id number] mg PO once kb 22:16 Drug: Hydrocodone-Acetaminophen PO (7.5 mg-325 mg) 1 tabs PO once Route: PO; jw7 22:16 Drug: Ketorolac IM 30 mg IM once Route: IM; Site: right deltoid; jw7 22:16 Drug: Dexamethasone IM 10 mg IM once Route: IM; Site: left deltoid; jw7 Disposition: 08/19 00:14 Co-signature as Attending Physician, Getachew Vargas MD I agree with the assessment sp4 and plan of care. I reviewed the patient's care provided by Advanced Practice Provider \T\ agree w/ the diagnosis \T\ care plan. I personally saw the pt \T\ performed a substantive portion of the visit, incldng all aspects of the (History/Exam/Medical Decision Making). Disposition Summary: 08/19/23 00:36 Discharge Ordered Notes: Location: Home kb Condition: Stable kb Diagnosis - Strain of muscle and tendon of back wall of thorax kb Followup: kb - With: Emergency Department - When: As needed - Reason: Worsening of condition Followup: kb - With: Private Physician - When: 2 - 3 days - Reason: Recheck today's complaints, Continuance of care, Re-evaluation by your physician Discharge Instructions: - Discharge Summary Sheet kb - Acute Back Pain, Adult kb - Muscle Strain, [id number] kb Forms: - Medication Reconciliation Form kb - Thank You Letter kb - Antibiotic Education kb - Prescription Opioid Use kb - Patient Portal Instructions kb - Leadership Thank You Letter kb Prescriptions: - Ibuprofen 800 mg Oral Tablet - take 1 tablet ORAL route every 8 hours As needed take with food; 30 tablet; kb Refills: 0, Product Selection Permitted - orphenadrine citrate 100 mg Oral Tablet Sustained Release - take 1 tablet ORAL route 2 times per day As needed; 20 tablet; Refills: 0, kb Product Selection Permitted Signatures: Dispatcher [employer] EDMS Emelina Camarena, CASSANDRA LAGOS-Samuel Daniels, RN RN bp Hawa Capone RN RN jw7 Getachew Vargas MD MD sp4 Corrections: (The following items were deleted from the chart) 08/18 21:35 21:35 predniSONE PO 40 mg PO once ordered. kb kb 23:07 22:59 Chest Pa And Lat (2 Views) ordered. EDMS EDMS
--- NOTE | 2023-08-19 00:37 | ER ---
Nurse's Notes [facility] Name: Law Abreu Age: 28 yrs Sex: Male : 1995 Arrival Date: 08/18/2023 Time: 21:05 Bed DX3 Private MD: Diagnosis: Strain of muscle and tendon of back wall of thorax Presentation: 08/18 21:29 Chief complaint: Patient states: 6 DAYS NECK PAIN. Coronavirus screen: At this time, bp the client does not indicate any symptoms associated with coronavirus-19. Ebola Screen: No symptoms or risks identified at this time. Initial Sepsis Screen: Does the patient meet any 2 criteria? No. Patient's initial sepsis screen is negative. Does the patient have a suspected source of infection? No. Patient's initial sepsis screen is negative. Risk Assessment: Do you want to hurt yourself or someone else? Patient reports no desire to harm self or others. Onset of symptoms is unknown. 21:29 Method Of Arrival: Ambulatory bp 21:29 Acuity: STACIA 5 bp Historical: - Allergies: 21:30 No Known Allergies; bp - Home Meds: 21:30 None [Active]; bp - PMHx: 21:30 None; bp - Immunization history:: Adult Immunizations up to date. - Social history:: Smoking status: Patient denies any tobacco usage or history of. Screenin:00 [facility] ED Fall Risk Assessment (Adult) History of falling in the last 3 months, jw7 including since admission No falls in past 3 months (0 pts) Score/Fall Risk Level 0 - 2 = Low Risk Oriented to surroundings, Maintained a safe environment. Abuse screen: Denies threats or abuse. Denies injuries from another. Nutritional screening: No deficits noted. Tuberculosis screening: No symptoms or risk factors identified. Assessment: 22:00 General: Appears in no apparent distress. uncomfortable, Behavior is calm, cooperative. jw7 Pain: Complains of pain in Neck and upper back Pain does not radiate. Pain currently is 8 out of 10 on a pain scale. Quality of pain is described as sharp, Is continuous. Neuro: Boyd Agitation-Sedation Scale (RASS): 0 - Alert and Calm Level of Consciousness is awake, alert, obeys commands, Oriented to person, place, time, situation. Cardiovascular: Capillary refill < 3 seconds Patient's skin is warm and dry. Respiratory: Airway is patent Trachea midline Respiratory effort is even, unlabored, Respiratory pattern is regular, symmetrical. GI: No deficits noted. No signs and/or symptoms were reported involving the gastrointestinal system. : No deficits noted. No signs and/or symptoms were reported regarding the genitourinary system. EENT: No deficits noted. No signs and/or symptoms were reported regarding the EENT system. Derm: Skin is intact, is healthy with good turgor, Skin is dry, Skin is normal, Skin temperature is warm. Musculoskeletal: Circulation, motion, and sensation intact. Range of motion: intact in all extremities. 08/19 00:14 Reassessment: Patient appears in no apparent distress at this time. Patient and/or jb4 family updated on plan of care and expected duration. Pain level reassessed. Patient is alert, oriented x 3, equal unlabored respirations, skin warm/dry/pink. Vital Signs: 08/18 21:29 BP 115 / 81; Pulse 72; Resp 16; Temp 98.3; Pulse Ox 100% ; Weight 81.65 kg; Height 5 bp ft. 5 in. ; 22:46 BP 114 / 82; Pulse 73; Resp 16 S; Pulse Ox 99% on R/A; jw7 21:29 Body Mass Index 29.95 (81.65 kg, 165.1 cm) bp ED Course: 21:07 Patient arrived in ED. jj6 21:16 [facility]el[facility]amarena [facility]C [facility]. kb 21:16 Getachew Vargas MD is Attending Physician. kb 21:30 Triage completed. bp 21:30 Hawa Capone, RN is Primary Nurse. jw7 21:30 Arm band placed on. bp 22:00 Patient has correct armband on for positive identification. Bed in low position. Call jw light in reach. 08/19 00:01 Chest Pa And Lat (2 Views) XRAY In Process Unspecified. EDMS 01:04 No provider procedures requiring assistance completed. Patient did not have IV access jb4 during this emergency room visit. Administered Medications: 08/18 21:35 CANCELLED (Duplicate Order): [id number] mg PO once kb 22:16 Drug: Hydrocodone-Acetaminophen PO (7.5 mg-325 mg) 1 tabs PO once Route: PO; jw7 22:16 Drug: Ketorolac IM 30 mg IM once Route: IM; Site: right deltoid; jw7 22:16 Drug: Dexamethasone IM 10 mg IM once Route: IM; Site: left deltoid; jw7 Outcome: 08/19 00:36 Discharge ordered by . rich 01:04 Discharged to home ambulatory, jb4 01:04 Condition: stable 01:04 Discharge instructions given to patient, Instructed on discharge instructions, follow up and referral plans. no drinking with medication, no driving heavy equipment, medication usage, Demonstrated understanding of instructions, follow-up care, medications, Prescriptions given X 2, 01:04 Patient left the ED. jb4 Signatures: Dispatcher [employer] EDMS Emelina Camarena, CASSANDRA LAGOS-Jossue Maddox RN RN jb4 Samuel Christian, DEO RN Anna Salas jj6 Hawa Capone RN RN jw7
[2023-08-19 02:31] VITALS: TEMP 98.3
[2023-08-19 02:36] VITALS: BP 114/82; O2SAT 99
--- NOTE | 2023-08-19 13:27 | RAD REPORT ---
EXAM DESCRIPTION: RAD - Chest Pa And Lat (2 Views) - 08/18/2023 11:59 pm CLINICAL HISTORY: CHEST PAIN COMPARISON: None TECHNIQUE: PA and lateral views of the chest. FINDINGS: Lung volumes adequate. Cardiac silhouette is normal in size. No pneumothorax. No large pleural effusion. No focal consolidation. No acute bony finding. IMPRESSION: No evidence of acute cardiopulmonary disease. Electronically signed by: Navarro Villalpando MD 08/19/2023 12:31 AM [employer] Due to temporary technical issues with the PACS/Fluency reporting system, reports are being signed by the in house radiologist without review as a courtesy to ensure prompt reporting. The interpreting r adiologist is fully responsible for the content of the report.
== END ==
LOC: ER 21:05
DX: S29.012A Strain of muscle and tendon of back wall of thorax, initial encounter (principal)
CPT/HCPCS: 71046; 96372; 99284; J1100